=== PATIENT | male | born 1995 | race Caucasian/White ===

== ENCOUNTER → 2020-03-05 | Outpatient (CLI) | payer BC ==
[~2020-03-05] MED LIST: METHACHOLINE KIT (J7674) INH ONE
--- NOTE | 2020-03-05 09:33 | PFTRPT ---
Height: 70.00 Inches Weight: 155.00 Lbs BSA: 1.87 Diagnosis: R06.02 DATE OF STUDY: 03/05/2020 ORDERED BY: Dr. Valdez Spirometry: Pre and post bronchodilator study of excellent technical quality. Forced vital capacity normal. FEV1 in proportion. Obstructive index is, therefore, normal. Flow Volume Loop: Expiratory limb of the flow volume loop is normal. No significant bronchodilator response identified. Lung Volumes: Total lung capacity normal. Residual volume is in proportion. Diffusing Capacity: Diffusing capacity normal. Hemoglobin: Hemoglobin acceptable at 15. Airway Mechanics: Airway resistance and conductance are normal. IMPRESSION: Normal study. MTDD
--- NOTE | 2020-03-06 04:27 | REP ---
Clinical: Abnormal lung field findings. Comparison: None. Technique: Axial noncontrast images from the thoracic inlet to the upper abdomen with coronal and sagittal re-formations. Findings: The bilateral lung garrison are well-aerated and clear. No consolidation, nodule or mass lesion. No pleural effusion. No pneumothorax. No axillary, hilar, or mediastinal adenopathy is appreciated. Pulmonary vasculature, thoracic aorta and heart/pericardium are normal. Tracheobronchial tree is patent. Limited upper abdomen demonstrates normal bilateral adrenal glands. Surrounding musculoskeletal structures are intact. Impression: Normal noncontrast CT of the chest. No acute mediastinal or pleuroparenchymal process appreciated. Electronically Signed by Matti Pappas MD 03/06/2020 04:18 A
== END ==
LOC: M CARPUL 08:38
PROVIDERS: ATTEND Internal Medicine Pulmonary Disease
DX: R91.8 Other nonspecific abnormal finding of lung field (principal)

== ENCOUNTER → 2020-04-04 | Outpatient (CLI) | payer BC ==
--- NOTE | 2020-04-04 11:12 | PFTRPT ---
Visit Date: 04/04/2020 Referring Doctor: Dylan Valdez MD Height: 70.00 Inches Weight: 155.00 Lbs BSA: 1.87 Diagnosis: R06.02 Study of excellent technical quality. Some difficulty with the required maneuvers is identified. Under protocol, methacholine was administered. At a dose of 2.5 mg or 13.875 CDUs, a 23% decline in the FEV1 was noted. PC of 1.65 is significant. Flow rates did return to baseline post-bronchodilator administration. IMPRESSION: Positive methacholine challenge study. MTDD
== END ==
LOC: M CARPUL 10:35
PROVIDERS: ATTEND Internal Medicine Pulmonary Disease
DX: R06.02 Shortness of breath (principal)
CPT/HCPCS: 94070; J7674